=== PATIENT | female | born 1940 | race Hispanic/Latino ===

== ENCOUNTER 2016-12-23 11:53 | Outpatient (CLI) | payer MEDICARE ==
--- NOTE | 2016-12-23 13:56 | XRay Report ---
SUPINE KUB: History: Diffuse abdominal pain. The abdominal gas pattern is unremarkable. No masses or organomegaly is identified and there is no gross evidence of free air or fluid. No significant soft tissue calcifications are noted. Cholecystectomy clips in the right upper quadrant are noted. IMPRESSION: No acute abdominal process.
== END 2016-12-23 11:54 | disposition home or self-care (01) ==
LOC: SPVIMAG 11:53
PROVIDERS: ATTEND Internal Medicine
DX: R10.84 Generalized abdominal pain (principal); Z90.49 Acquired absence of other specified parts of digestive tract
CPT/HCPCS: 74000